=== PATIENT | male | born 1965 | race African-American/Black ===

== ENCOUNTER 2016-11-01 14:40 | Emergency (ER) | payer OTHER ==
[~2016-11-01] VITALS: Ht 165.1 cm; Wt 93.0 kg
[~2016-11-01 14:40] MED LIST: IBUPROFEN600 MG PO; INDOMETHACIN25 MG PO; ZOFRAN4 MG PO
[2016-11-01 17:13] VITALS: BP 143/85
== END 2016-11-01 17:14 | disposition home or self-care (01) ==
LOC: EME 14:40
DX: M94.0 Chondrocostal junction syndrome [Tietze] (principal); S20.219A Contusion of unspecified front wall of thorax, initial encounter; W19.XXXA Unspecified fall, initial encounter; I10 Essential (primary) hypertension; F17.200 Nicotine dependence, unspecified, uncomplicated
CPT/HCPCS: 71020; 93005; 99281; 99284

== ENCOUNTER 2016-11-01 19:07 | Emergency (ER) | payer OTHER ==
[~2016-11-01] VITALS: Ht 172.7 cm; Wt 81.8 kg
[2016-11-01 19:10] VITALS: BP 155/72
== END 2016-11-01 20:00 | disposition home or self-care (01) ==
LOC: EME 19:07
DX: F10.10 Alcohol abuse, uncomplicated (principal); Z91.81 History of falling; I10 Essential (primary) hypertension; M94.0 Chondrocostal junction syndrome [Tietze]; F17.200 Nicotine dependence, unspecified, uncomplicated; F19.10 Other psychoactive substance abuse, uncomplicated
CPT/HCPCS: 99281; 99283